=== PATIENT | male | born 1965 | race Caucasian/White ===

== ENCOUNTER 2019-03-06 02:48 | Inpatient (IN) | payer MEDICARE, MEDICAID ==
[2019-03-06] VITALS (7 sets, daily range): BP systolic 84–154; BP diastolic 46–73
[~2019-03-06] VITALS: Ht 167.6 cm; Wt 70.1 kg
--- NOTE | ~2019-03-06 | CON ---
[address] [address] CONSULTATION Name: LUZ SULLIVAN JR Room: [address] IN [facility]#: [id number] Admission: 03/06/19 Attend Phys: Jorge Ocasio, Discharge: Date of : 65 Report #: [id number] THIS REPORT FOR: //name// CC: [facility] physician/PCP Jorge Ocasio DATE OF SERVICE: 03/06/2019 CONSULTING PHYSICIAN: Dr. Hagan. REASON FOR NEPHROLOGY CONSULTATION: Acute kidney injury, hyperkalemia. CHIEF COMPLAINT: The patient was found by police. HISTORY OF PRESENT ILLNESS: This is a 53-year-old male who was walking down the street and waved at the police because he was not feeling good. He was brought to the ER. His urine tox was positive for opiates and methamphetamine. He also admitted to be drinking all night. Also, admitted to use of methamphetamine. He was found to have a creatinine of 3.1 with a CPK of 4374 with hyperkalemia and potassium of 6.2. In addition to other medications, his home medications in the list are Zestril, naproxen 500 mg twice a day, Epclusa for hepatitis C. The patient cannot confirm his medications at the moment. He has been started on IV fluids. He is currently not able to provide me history. He is very fidgety, just keeps saying "ma'am I am sorry." ALLERGIES: TRAMADOL, AMITRIPTYLINE. REVIEW OF SYSTEMS: As mentioned in history of present illness, was not able to obtain because of his mental status currently. PAST MEDICAL AND SURGICAL HISTORY: According to the patient's chart is end-stage liver disease, polysubstance abuse, GERD, IBS, hypertension, diskectomy, neck fusion, nasal reconstruction, varicocele, hernia. HOME MEDICATIONS: Include , lisinopril, trazodone, tizanidine, but also enlisted are naproxen and Epclusa. SOCIAL HISTORY: Looks like he does use methamphetamine, opioids and does drink alcohol and other; while social history is not known yet. FAMILY HISTORY: Not known. PHYSICAL EXAMINATION: VITAL SIGNS: Blood pressure is 154/73, pulse ox 95, respiratory rate is 24, temperature 37.6. GENERAL: He is very fidgety. He is oriented x 3, but [place] [address] CONSULTATION Name: LUZ SULLIVAN Room: [address]#: [id number] Admission: 03/06/19 Attend Phys: Jorge Ocasio, Discharge: Date of : 65 Report #: [id number] conversation. HEAD AND EYES: Atraumatic, normocephalic. Eyes seem to have normal conjunctivae, but he keeps rolling his eyes upwards, but then comes back to normal. EARS, NOSE, AND THROAT: Mucous membranes are dry. NECK: There is no JVD. CHEST: Shows bilateral clear to auscultation anteriorly. No crackles or wheezing. CARDIOVASCULAR: S1, S2 normal. No murmurs or rubs. ABDOMEN: Soft, nondistended, nontender. Bowel sounds are present. EXTREMITIES: No lower extremity edema, symmetrical lower extremities. NEUROLOGICAL: He is currently quite out of it and very fidgety, although he is oriented x 3. PSYCHIATRIC: Cannot assess right now, very anxious. LABORATORY DATA: WBC 13.4, potassium is 4.6, sodium is 136, BUN is 73, creatinine is 3.7, CO2 is 16, calcium is 10.6. Other labs are reviewed. IMAGING: Chest x-ray was reviewed. ASSESSMENT: 1. Acute hyperkalemia in the setting of renal insufficiency and possibly TRENTON inhibitor and nonsteroidal anti-inflammatory drugs use, potassium 6.2 on admission. 2. Acute kidney injury. Baseline creatinine not known. In the setting of rhabdomyolysis, intravascular volume depletion and possible nonsteroidal anti-inflammatory drug and TRENTON inhibitor use. Creatinine 3.1 on admission. 3. Anion gap metabolic acidosis with metabolic alkalosis in the setting of renal insufficiency and intravascular volume depletion. 4. Hypercalcemia. Calcium 10.6 on presentation; 9.9 on admission, but 10.6 soon after because of intravascular volume depletion. 5. Substance abuse, multi-substance abuse including methamphetamine and opioids and alcohol as well. 6. Possible history of hepatitis C. 7. Rhabdomyolysis is also contributing to acute kidney injury. It could be in the setting of drug abuse and volume depletion, and if he is on medication Epclusa, that also has a side effect of causing elevated CPK. 8. Elevated AST. PLAN: 1. Bicarbonate drip at 200 mL an hour to help with metabolic acidosis and volume depletion. 2. Renal ultrasound, I's and O's, UA revealed trace blood and 1+ protein, can be repeated at a later point. 3. Hold all nephrotoxic agents, NSAIDs, TRENTON inhibitor and if he is on Epclusa that should be held as well. [address] [address] CONSULTATION Name: LUZ SULLIVAN Room: [address]#: [id number] Admission: 03/06/19 Attend Phys: Jorge Ocasio, Discharge: Date of : 65 Report #: [id number] 4. He should be on a renal diet. 5. Check bladder scan as well. 6. We will continue to follow along with you. More than 35 minutes of critical care time spent and care was discussed with the patient's nurse. By: [id number] De La Cruz MD /joe
[~2019-03-06 02:48] MED LIST: AVALIDE 150-121 EACH PO; AZITHROMYCIN 2250 MG PO; BACTROBAN CREAM30 G1 TOP; CLEOCIN HCL150 MG PO; LISINOPRIL20 MG PO; LYRICA; NAPROSYN500 MG PO; PREDNISONE 20 M20 MG PO; ROBITUSSIN15 MG/5 ML PO; ROXICODONE5 MG PO; TESSALON PERLE100 MG PO; TRAZODONE 150150 M1 PO; WELLBUTRIN XL300 MG PO; ZANAFLEX4 M1 PO; [UNRECOGNIZED DRUG - OTHER]
[2019-03-06 05:07] LABS: ABSOLUTE BASOPHILS 0.1 thou/uL (0.0-0.2); ABSOLUTE LYMPHOCYTES 0.6 thou/uL (0.8-5.3); ABSOLUTE NEUTROPHILS 11.7 thou/uL (1.6-8.1); BASOPHILS 0.6 %; HEMATOCRIT 41.2 % (42.0-52.0); LYMPHOCYTES 4.7 %; MCH 33.5 pg (26.0-34.0); MCHC 33.9 g/dL (28.0-37.0); MCV 98.8 fL (80.0-100.0); MONOCYTES 7.5 %; MPV 8.5 fl. (7.2-11.1); NUCLEATED RBCS 0 /100WBC; PLATELET COUNT* 314 thou/uL (150-400); POLYS 87.2 %; RBC 4.17 mil/uL (4.50-6.00); RDW-CV 14.1 % (10.5-14.5); WBC 13.4 thou/uL (4.0-11.0)
[2019-03-06 05:11] LABS: ANION GAP 17 mmol/L (7-16); BUN 41 mg/dL (7-18); CALCIUM 9.9 mg/dL (8.5-10.1); CHLORIDE 97 mmol/L (98-107); CO2 22 mmol/L (21-32); CREATININE 3.1 mg/dL (0.6-1.3); GLUCOSE 70 mg/dL (70-99); SODIUM 136 mmol/L (136-145)
[2019-03-06 05:20] LABS: ALBUMIN 4.1 g/dL (3.4-5.0); ALKALINE PHOSPHATASE 114 U/L (46-116); SGOT 75 U/L (15-37); SGPT 63 U/L (30-65); TOTAL BILIRUBIN 1.1 mg/dL (<0.1-1.0); TOTAL PROTEIN 8.9 g/dL (6.4-8.2); TROPONIN-I LEVEL <0.06 ng/mL (<0.06)
[2019-03-06 05:25] LABS: POTASSIUM 6.2 mmol/L (3.5-5.1)
[2019-03-06 05:38] LABS: URINE BLOOD TRACE (Negative); URINE CLARITY CLEAR; URINE COLOR YELLOW; URINE GLUCOSE-RANDOM NEGATIVE (Negative); URINE KETONES TRACE (Negative); URINE LEUKOCYTES NEGATIVE (Negative); URINE NITRITE NEGATIVE (Negative); URINE PROTEIN 1+ (Negative); URINE SPECIFIC GRAVITY >= 1.030 (1.005-1.030); URINE UROBILINOGEN 0.2 E.U./dl (0.2-1.0)
[2019-03-06 05:45] LABS: ICTOTEST (BILI CONFIRMATORY) Negative (Negative); URINE BILIRUBIN 1+ (Negative)
[2019-03-06 05:46] LABS: AMP/METHAMP POSITIVE (Negative); BARBITURATES Negative (Negative); BENZODIAZEPINES Negative (Negative); COCAINE Negative (Negative); METHADONE Negative (Negative); OPIATES POSITIVE (Negative); PCP Negative (Negative); THC Negative (Negative)
[2019-03-06 06:12] LABS: APTT 31.4 Seconds (25.0-31.3); PROTIME 10.6 Seconds (9.20-11.50)
--- NOTE | 2019-03-06 06:58 | NUR ---
THIS NURSE RECEIVED REPORT FROM TORY CARRANZA. THIS NURSE TO ASSUME PT CARE AT THIS TIME.
--- NOTE | 2019-03-06 08:30 | NUR ---
REC'D REPORT FROM PUMPER BREWERY APPROX 0800, PATIENT ARRIVED TO UNIT VIA GURNEY AND PUMPER BREWERY. ORIENTED TO SELF, RAMBLING, CONSTANT MOVEMENT OF HEAD SIDE-SIDE, DISTRACTED. NO C/O PAIN, NAUSEA, ANXIETY AT THIS TIME. ORIENTED TO ROOM, CALL LIGHT. FREQUENT CHECKS.
[2019-03-06 08:45] LABS: CALCIUM 10.6 mg/dL (8.5-10.1); CREATININE 3.7 mg/dL (0.6-1.3)
[2019-03-06 08:46] LABS: POTASSIUM 4.6 mmol/L (3.5-5.1)
--- NOTE | 2019-03-06 16:00 | NUR ---
FRIEND OF PATIENT, ÁNGELA, INQUIRED ABOUT PATIENT STATUS. UPDATED ÁNGELA, SHE STATES THAT PATIENT WAS ON DIALYSIS IN SEPTEMBER 2017 AT [facility]. AT THAT TIME, ÁNGELA STATES "HE HAD RHABDO AND FORMED A LARGE CLOT THAT WENT TO HIS HEART. HE WAS ON DIALYSIS BUT WAS ABLE TO COME OFF DIALYSIS AFTER A SHORT TIME." ÁNGELA DESCRIBES PATIENT SEVERELY DEPRESSED AND HAS LITTLE SUPPORT. ÁNGELA SAID THAT SHE AND HER DO WHAT THEY CAN TO BE SUPPORTIVE BUT THEY HAVE A FAMILY TO CARE FOR ALSO. SHE STATES "HE HAD BEEN DOING OK STAYING AWAY FROM THAT." ÁNGELA STATES PATIENT'S FAMILY RELATIONSHIPS ARE STRAINED DUE TO HIS CHOICES. CASE MANAGEMENT CONSULT PLACED.
[2019-03-06 16:43] LABS: ABSOLUTE MONOCYTES 0.7 thou/uL (0.0-1.2); ABSOLUTE NEUTROPHILS 8.2 thou/uL (1.6-8.1); BASOPHILS 0.2 %; EOSINOPHILS 0.3 %; HEMATOCRIT 37.9 % (42.0-52.0); LYMPHOCYTES 9.9 %; MCH 33.9 pg (26.0-34.0); MCHC 34.2 g/dL (28.0-37.0); MONOCYTES 6.6 %; MPV 7.8 fl. (7.2-11.1); NUCLEATED RBCS 0 /100WBC; PLATELET COUNT* 240 thou/uL (150-400); RBC 3.82 mil/uL (4.50-6.00); RDW-CV 14.1 % (10.5-14.5); WBC 9.9 thou/uL (4.0-11.0)
[2019-03-06 16:52] LABS: PROTIME 10.2 Seconds (9.20-11.50)
[2019-03-06 16:55] LABS: PHOSPHORUS* 6.3 mg/dL (2.5-4.9)
[2019-03-06 16:58] LABS: CALCIUM 8.2 mg/dL (8.5-10.1)
[2019-03-06 17:11] LABS: AMMONIA < 10 umol/L (11-32)
[2019-03-07] VITALS: BP 103/55
[2019-03-07 04:00] VITALS: BP 101/56
[2019-03-07 04:44] LABS: CALCIUM 7.8 mg/dL (8.5-10.1); CREATININE 2.2 mg/dL (0.6-1.3); POTASSIUM 3.3 mmol/L (3.5-5.1)
[2019-03-07 08:21] VITALS: BP 104/61
--- NOTE | 2019-03-07 10:25 | NUR ---
ASSUMED CARE OF PT THIS AM AROUND 0715- ASSISTANT HEAD CASHIER IN PLACE ORDERED, TRACING SR- UPON ASSESSMENT PT NOTED TO BE RESTING IN BED, EYES CLOSED- PT NOTED TO BE DROWSY, AROUSABLE, BUT THEN FALLS BACK TO SLEEP THIS AM- CONTINENT OF BOWEL AND BLADDER- SBA WITH TRANSFERS REPORTED- LCTA, RESP EVEN AND [id number] SAT 96% ON RA, TEMP NOTED AT 101.6; PRN TYLENOL GIVEN AT 0903- ABD SOFT/ROUND/NON-TENDER, BS X4 QUADS- LAST BM REPORTED ON PRIOR SHIFT- IV NOTED TO LEFT HAND INTACT, IVF INFUSSING PRESCIBED- ASSISTANCE REQUIRED WITH MEALS THIS AM R/T DROWSINESS, FAIR PO INTAKE NOTED-K+ 40 MEQ ONE TIME DOSE GIVEN THIS AM R/T K+ OF 3.3, ELECTROLYTE PROTOCOL ADDED INDICATED-CALL LIGHT AND PERSONAL BELONGINGS WITH IN REACH- BED ALARM IN PLACE AND WORKING FOR PT SAFETY- HOURLY ROUNDS IN PLACE R/T SAFETY/NEEDS- ALL NEEDS MET AT THIS TIME-WCTM
[2019-03-07 11:49] VITALS: BP 90/53
--- NOTE | 2019-03-07 15:40 | NUR ---
SW attempted to complete initial assessment with pt. Pt was sleeping soundly with uneaten food on tray in front of him, washcloth on forehead. Pt did not awaken to SW entrance into the room and call of mary. SW to continue to follow to assist with safe dc planning and providing resources regarding drug and alcohol abuse.
[2019-03-07 16:33] VITALS: BP 107/67
--- NOTE | 2019-03-07 16:42 | NUR ---
PT CURRENTLY RESTING IN BED, EYES CLOSED- CARDAIC MONITOR IN PLACE ORDERED, TRACING SR- IV TO LEFT HAND INTACT, IVF INFUSSING PRESCIBED- PT NOTED TO SOMNOLENTMOST SHIFT, HARD TO ARROUSE- VQ SCAN COMPLETED THIS SHIFT ORDERED, RESULTS NOTED WITH LOW PROB- TEMP NOTED AT 101 WITH TYLENOL X2 THIS SHIFT- NOTIFIED WITH ORDERS NOTED FOR LACTIC ACID, BLOOD CULTURES, AND ROCEPHIN DAILY- LACITC NOTED WNL AT 0.8, AND BLOOD CULTURES COLLECTED- URINE RESIDUL POST 200CC VOID NOTED AT 966CC-16 F JUAN PLACED PER ORDERS WITH 1200CC OUTPUT NOTED THIS SHIFT-K+ REPLACED INDICATED THIS SHIFT WITH REDRAW SCHEDULED AT 1700- POOR PO INTAKE NOTED WITH LUNCH R/T SOMNULENCE- HOURLY ROUNDS IN PLACE R/T SAFETY- BED ALARM IN PLACE AND WORKING FOR PT SAFETY/NEEDS- CIWA LATEST NOTED AT 0- SCHEDULED ATIVAN CURRENTLY BEING REPLACED- ALL NEEDS MET AT THIS TIME-WCTM
--- NOTE | 2019-03-07 16:57 | EKG ---
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: GL : 1965 Requested By: Nuria Hagan Order Number: [id number] Toñito HUERTA: Kris Jhaveri Measurements Intervals Canute Rate: 101 P: 40 NC: 133 QRS: 65 QRSD: 87 T: 48 QT: 347 QTc: 450 Interpretive Statements Sinus tachycardia Baseline wander in lead(s) V6 Compared to ECG 07/21/2009 14:15:54 Sinus rate has increased Electronically Signed On 03-07-2019 16:57:36 CDT by Kris Jhaveri [email or web address] <ELECTRONICALLY SIGNED> By: Kris Jhaveri MD, [facility] 03/07/19 [id number] Kris Jhaveri MD, [facility] /EPI
[2019-03-07 20:00] VITALS: BP 116/67
[2019-03-08] VITALS: BP 115/54
[2019-03-08 04:00] VITALS: BP 121/82
[2019-03-08 05:24] LABS: HEMATOCRIT 34.8 % (42.0-52.0); MCH 34.4 pg (26.0-34.0); MCHC 34.4 g/dL (28.0-37.0); MPV 8.3 fl. (7.2-11.1); RBC 3.48 mil/uL (4.50-6.00); RDW-CV 14.1 % (10.5-14.5); WBC 8.8 thou/uL (4.0-11.0)
[2019-03-08 05:25] LABS: ALBUMIN 2.2 g/dL (3.4-5.0); CREATININE 1.4 mg/dL (0.6-1.3); MAGNESIUM 2.2 mg/dL (1.8-2.4); PHOSPHORUS* 2.1 mg/dL (2.5-4.9); POTASSIUM 4.2 mmol/L (3.5-5.1); TOTAL BILIRUBIN 0.5 mg/dL (<0.1-1.0); TOTAL PROTEIN 6.3 g/dL (6.4-8.2)
--- NOTE | 2019-03-08 06:10 | NUR ---
ASSUMED PT CARE AT 1930. ASSESSMENT COMPLETED CHARTED. PT HAS BEEN SOMULENT AND SLEEPING ALL NIGHT. C/O BACK PAIN AND GAVE TYLENOL FOR THAT AND FEVER OF 101. JUAN DRAINING YELLOW URINE. Q2TURN WHILE HE IS STILL SOMULENT. PT RESTING IN BED STILL AT THIS TIME. HAS NOTED NEED FOR WATER AND USING RESTROOM. WILL CONTINUE TO MONITOR.
[2019-03-08 08:34] VITALS: BP 145/93
--- NOTE | 2019-03-08 09:54 | NUR ---
ASSUMED CARE OF PT THIS AM AROUND 07- PROPAGATOR IN PLACE ORDERED, TRACING SR- UPON ASSESSMENT PT NOTED TO BE RESTING IN BED EYES CLOSED- PT A&O X3, WAKES FOR SHORT PERIODS THEN FALLS BACK TO SLEEP- CONTINENT OF BOWEL, JUAN IN PLACE D/D CLEAR YELLOW URINE- Q 2HOUR TURNS IN PLACE INDICATED- LCTA, RESP EVEN AND UN-LABORED- VSS, O2 SAT 93% ON RA- ABD SOFT/ROUND/NON-TENDER, BS X4 QUADS- LAST BM REPORTED ON PRIOR SHIFT- IV NOTED TO LEFT HAND INTACT, IVF INFUSSING PRESCIBED- PT DENIES ANY C/O PAIN/DISCOMFORT AT THIS TIME- CALL LIGHT AND PERSONAL BELONGINGS WITH IN REACH- BED ALARM IN PLACE AND WORKING FOR PT SAFETY/NEEDS- ALL NEEDS MET AT THIS TIME-WCTM
[2019-03-08 13:24] VITALS: BP 126/78
[2019-03-08 16:00] VITALS: BP 138/87
--- NOTE | 2019-03-08 18:13 | NUR ---
PT CURRENTLY RESTING IN BED EYES CLOSED- TOW MATE IN PLACE ORDERED, TRACING SR- IV TO LEFT HAND INTACT, IVF INFUSSING PRESCIBED- PT CONTINUES TO SLEEP MOST SHIFT WITH POOR PO INTAKE- FREQUENT CHECKS IN PLACE R/T SAFETY/NEEDS- PT NOTED TO BE PICKING AT SCABS ON FACE AND OPENED SOME UP- HERE TO ASSESS WITH ORDERS NOTED FOR NEOMYCIN BID AND APPLIED ORDERED AND COVERED WITH BAND-AIDES- ALL NEEDS MET AT THIS TIME-WCTM
[2019-03-08 20:00] VITALS: BP 151/88
[2019-03-09] VITALS: BP 148/87
[2019-03-09 04:00] VITALS: BP 162/93
[2019-03-09 05:44] LABS: HEMATOCRIT 33.5 % (42.0-52.0); HEMOGLOBIN 11.6 gm/dL (14.0-18.0); MCH 34.4 pg (26.0-34.0); MCHC 34.6 g/dL (28.0-37.0); MCV 99.6 fL (80.0-100.0); MPV 8.3 fl. (7.2-11.1); RBC 3.36 mil/uL (4.50-6.00); RDW-CV 14.2 % (10.5-14.5)
[2019-03-09 05:59] LABS: ALBUMIN 2.1 g/dL (3.4-5.0); PHOSPHORUS* 2.1 mg/dL (2.5-4.9); POTASSIUM 3.8 mmol/L (3.5-5.1)
[2019-03-09 07:06] LABS: HEPATITIS B SURFACE AG Negative (Negative)
[2019-03-09 08:00] VITALS: BP 160/98
[2019-03-09 12:55] VITALS: BP 178/100
--- NOTE | 2019-03-09 13:55 | NUR ---
ATTEMPTED TO MEET WITH PT, HE ASKED THAT CM COME BACK, DID NOT FEEL LIKE TALKING TODAY
[2019-03-09 17:15] VITALS: BP 154/83
--- NOTE | 2019-03-09 19:50 | NUR ---
VSS, ASSUMED CARE OF PT IN THE AM, ASSESSMENT PERFORMED AND CHARTED BY MIRIAM SPEARS, PT IS A&O4 AND UP STAND BY, ON RA, AND SR ON THE MONITOR, HOURLY ROUNDS COMPLETED, PT JUAN REMOVED AND PT STATES ABD PAIN, WILL FOLLOW WITH PLAN OF CARE.
[2019-03-09 21:20] VITALS: BP 150/86
[2019-03-10] VITALS: BP 113/55
[2019-03-10 04:00] VITALS: BP 181/100
[2019-03-10 04:28] VITALS: BP 169/100
[2019-03-10 04:50] LABS: HEMATOCRIT 35.4 % (42.0-52.0); HEMOGLOBIN 11.7 gm/dL (14.0-18.0); MCH 33.4 pg (26.0-34.0); MCHC 33.1 g/dL (28.0-37.0); MCV 100.8 fL (80.0-100.0); MPV 8.2 fl. (7.2-11.1); RBC 3.51 mil/uL (4.50-6.00); RDW-CV 14.4 % (10.5-14.5); WBC 6.5 thou/uL (4.0-11.0)
[2019-03-10 05:13] LABS: ALBUMIN 2.2 g/dL (3.4-5.0); CALCIUM 8.3 mg/dL (8.5-10.1); MAGNESIUM 1.8 mg/dL (1.8-2.4); PHOSPHORUS* 2.8 mg/dL (2.5-4.9); POTASSIUM 4.5 mmol/L (3.5-5.1); TOTAL BILIRUBIN 0.3 mg/dL (<0.1-1.0); TOTAL PROTEIN 6.4 g/dL (6.4-8.2)
--- NOTE | 2019-03-10 06:50 | NUR ---
PT SLEPT MOST OF SHIFT. ASSESSMENT DOCUMENTED. MEDS GIVEN PER E-MAR. IV PATENT, FLUIDS INFUSING. NO REPORTS OF PAIN OR NAUSEA. PT LETHARGIC THIS SHIFT. TELE MONITOR READING SR TO SB. WILL CONTINUE WITH PLAN OF CARE.
[2019-03-10 08:00] VITALS: BP 170/98
[2019-03-10 11:56] VITALS: BP 168/92
--- NOTE | 2019-03-10 13:38 | NUR ---
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 NSG INDICATES ACUTE PT SERVICES ARE NOT INDICATED. HOUSE PHYSICIAN CONCURS AND RECOMMENDDS DISCHARGE PT ORDERS.
--- NOTE | 2019-03-10 14:00 | NUR ---
VSS, ASSUMED CARE IN THE AM, ASSESSMENT PERFORMED AND CHARTED, FALL PRECAUTIONS IN PLACE AND CALL LIGHT IN REACH, PT IS A&O4 AND ON RA AND IS TRACING SR ON THE MONITOR, PT DENIES ANY PAIN, PT IS UP AD JONN AND HE HAS TAKEN A SHOWER AND SHAVED, AT THIS TIME HE IS HAS LEFT AMA, I TOOK OUT IV AND TELE MONITOR, PT REFUSED TO SIGN AMA PAPERS, PT GRABED BELONINGS AND DOCTOR WAS PAGED BUT PUNCH CARD OPERATOR DOCTOR WAS NOT ABLE TO GET REACHED, CHARGE NURSE WAS NOTIED.
--- NOTE | 2019-03-10 17:00 | NUR ---
SW spoke with pt prior to dc. Pt said that he plans to dc to a hotel temporarily and then he plans to find other safe housing in an [facility] setting. Pt says he has a friend who is supportive if needed. Pt said he has resources already for drug/substance abuse programs and he plans to try to quit drinking alcohol; pt says he thinks he will be okay if he is able to stop drinking alcohol that he admits he did not think was a problem prior to this hospitalization.
== END 2019-03-10 14:00 | disposition left against medical advice (07) | DRG 70 ==
LOC: M.ERS 02:48 → M.TBA-ER 05:46 → M.2W 05:46
PROVIDERS: Internal Medicine; Personal Emergency Response Attendant; ADMIT Family Medicine
DX: G93.41 Metabolic encephalopathy (principal); E43 Unspecified severe protein-calorie malnutrition; I26.99 Other pulmonary embolism without acute cor pulmonale; N17.9 Acute kidney failure, unspecified; E87.2 Acidosis; M62.82 Rhabdomyolysis; F15.10 Other stimulant abuse, uncomplicated; I10 Essential (primary) hypertension; K58.9 Irritable bowel syndrome, unspecified; K21.9 Gastro-esophageal reflux disease without esophagitis; E87.5 Hyperkalemia; F11.10 Opioid abuse, uncomplicated; F10.10 Alcohol abuse, uncomplicated; E83.52 Hypercalcemia; E86.9 Volume depletion, unspecified; F17.210 Nicotine dependence, cigarettes, uncomplicated; G89.29 Other chronic pain; M54.9 Dorsalgia, unspecified; K72.90 Hepatic failure, unspecified without coma; F41.9 Anxiety disorder, unspecified; R33.9 Retention of urine, unspecified; Z68.25 Body mass index [BMI] 25.0-25.9, adult; Z88.8 Allergy status to other drugs, medicaments and biological substances; Z79.899 Other long term (current) drug therapy